=== PATIENT | male | born 1985 | race Caucasian/White ===

== ENCOUNTER → 2020-11-19 | Outpatient (CLI) | payer BC ==
[~2020-11-19] MED LIST: 5HTP; CLONIDINE0.1 MG PO; ESCITALOPRAM10 MG PO; LISINOPRIL20 MG PO; MAGNACAPS100 MG PO; MULTIVITAMIN; VITAMIN C PUR1000 MG PO; WELLBUTRIN SR150 M1 PO
== END ==
LOC: LAB 11:03
DX: R06.00 Dyspnea, unspecified (principal); Z20.822 Contact with and (suspected) exposure to COVID-19